=== PATIENT | female | born 1995 | race Caucasian/White ===

== ENCOUNTER 2020-01-23 12:43 | Emergency (ER) | payer OTHER ==
--- NOTE | 2020-01-23 13:23 | ED ---
Complex/Multi-Sys Presentation - HPI Summary HPI Summary: 24 year old F presenting to [facility] with a chief complaint of low potassium since earlier today. The patient rates the pain 0/10 in severity. Symptoms aggravated by nothing. Symptoms alleviated by nothing. Patient reports a history of anorexia. She had blood work done at [facility] today that revealed a low potassium. Patient denies any shortness of breath or diarrhea. She is trying to get into a treatment program for her eating disorder currently. Medication list reviewed. Allergy list reviewed. Home Medications Medication Instructions Recorded Confirmed Type Calcium Carbonate [Calcium] 500 mg PO DAILY 01/23/20 01/23/20 History Multivitamins/Minerals TAB* 1 tab PO DAILY 01/23/20 01/23/20 History [Theragran/minerals TAB*] - History Of Current Complaint Chief Complaint: EDGeneral Time Seen by Provider: 01/23/20 13:17 Hx Obtained From: Patient Onset/Duration: Still Present Timing: Constant Aggravating Factor(s): None Alleviating Factor(s): None Associated Signs And Symptoms: Negative: SOB, Diarrhea - Allergies/Home Medications Allergies/Adverse Reactions: Allergies Allergy/AdvReac Type Severity Reaction Status Date / Time No Known Allergies Allergy Verified 01/23/20 12:50 Home Medications: Home Medications Calcium Carbonate [Calcium] 500 mg PO DAILY 01/23/20 [History Confirmed 01/23/20 ] Multivitamins/Minerals TAB* [Theragran/minerals TAB*] 1 tab PO DAILY 01/23/20 [ History Confirmed 01/23/20] PMH/Surg Hx/FS Hx/Imm Hx EENT History: Denies: Hx Deafness Psychiatric History: Reports: Hx Eating Disorder - Anorexia - Surgical History Surgical History: None Infectious Disease History: No Infectious Disease History: Denies: Traveled Outside the [place] in Last 30 Days - Family History Known Family History: Negative: Hypertension - Social History Alcohol Use: Occasionally Hx Substance Use: No Substance Use Type: Reports: None Smoking Status (MU): Current Every Day Smoker Type: eCigarettes Review of Systems Positive: Other - Low potassium Negative: Shortness Of Breath Negative: Diarrhea All Other Systems Reviewed And Are Negative: Yes Physical Exam - Summary Physical Exam Summary: Constitutional: Well-developed, Well-nourished, Alert. (-) Distressed Skin: Warm, Dry HENT: Normocephalic; Atraumatic Eyes: Conjunctiva normal Neck: Musculoskeletal ROM normal neck. (-) JVD, (-) Stridor, (-) Tracheal deviation Cardio: Rhythm regular, rate normal, Heart sounds normal; Intact distal pulses; Radial pulses are 2+ and symmetric. (-) Murmur Pulmonary/Chest wall: Effort normal. (-) Respiratory distress, (-) Wheezes, (-) Rales Abd: Soft, (-) tenderness, (-) Distension, (-) Guarding, (-) Rebound Musculoskeletal: (-) Edema Lymph: (-) Cervical adenopathy Neuro: Alert, Oriented x3 Psych: Mood and affect Normal Triage Information Reviewed: Yes Vital Signs On Initial Exam: Initial Vitals Temp Pulse Resp BP Pulse Ox 98.3 F 75 16 120/72 100 01/23/20 12:45 01/23/20 12:45 01/23/20 12:45 01/23/20 12:45 01/23/20 12:45 Vital Signs Reviewed: Yes Procedures - Sedation Patient Received Moderate/Deep Sedation with Procedure: No Diagnostics - Vital Signs Vital Signs Temp Pulse Resp BP Pulse Ox 01/23/20 12:45 98.3 F 75 16 120/72 100 - Laboratory Result Diagrams: 01/23/20 13:31 01/23/20 13:31 Lab Statement: Any lab studies that have been ordered have been reviewed, and results considered in the medical decision making process. - EKG 13:25 Cardiac Rate: NL - 59 BPM EKG Rhythm: Sinus Bradycardia Summary of EKG Findings: Normal EKG; no obvious U-Waves present. ED physician has reviewed and interpreted this EKG. Complex Multi-Symp Course/Dx Course Of Treatment: Patient is here with hypokalemia secondary to anorexia. Patient is asymptomatic and has a normal EKG. However, patient does not tolerate by mouth due to her eating disorder so IV potassium was given. Patient eventually agreed to by mouth potassium. Patient is discharged with follow-up at [facility]. - Diagnoses Provider Diagnoses: Hypokalemia Discharge ED - Sign-Out/Discharge Documenting (check all that apply): Patient Departure - Discharge Plan Condition: Stable Disposition: HOME Patient Education Materials: Hypokalemia (ED) Referrals: [facility] [Provider Group] Additional Instructions: Follow-up with [facility] to make sure your potassium comes up to normal levels and to get placement into your treatment center. - Billing Disposition and Condition Condition: STABLE Disposition: Home - Attestation Statements Document Initiated by Sean: Yes Documenting Scribe: Bobbi Victor Provider For Whom Sean is Documenting (Include Credential): Sunny Bajwa MD Scribe Attestation: Bobbi Rapp, scribed for Sunny Bajwa MD on 01/23/20 at 1833. Scribe Documentation Reviewed: Yes Provider Attestation: The documentation as recorded by the Bobbi mayer accurately reflects the service I personally performed and the decisions made by me, Sunny Bajwa MD Status of Scribe Document: Viewed
[2020-01-23 13:51] LABS: ABS Eosinophils 0.1 10^3/ul (0-0.6); ABS Lymphocytes 1.4 10^3/ul (1.0-4.8); ABS Monocytes 0.4 10^3/ul (0-0.8); Eosinophil % 1.1 %; Hematocrit 36 % (35-47); Hemoglobin 12.7 g/dL (12.0-16.0); Lymphocyte % 28.9 %; Mean Corpuscular HGB Conc 35 g/dL (31-36); Mean Corpuscular Hemoglobin 32 pg (27-31); Mean Corpuscular Volume 91 fL (80-97); Mean Platelet Volume 8.3 fL (7.4-10.4); Platelet Count 215 10^3/uL (150-450); Red Blood Count 4.01 10^6 /uL (3.70-4.87); Red Cell Distribution Width 14 % (10-15); White Blood Count 4.9 10^3/uL (3.5-10.8)
[2020-01-23 13:59] LABS: Anion Gap 5 mmol/L (2-11); BUN/Creatinine Ratio 30.3 (8-20); Blood Urea Nitrogen 23 mg/dL (6-24); CO2 Carbon Dioxide 37 mmol/L (22-32); Calcium 9.6 mg/dL (8.6-10.3); Chloride 93 mmol/L (101-111); EGFR African American 112.2 (>60); EGFR Non-African American 92.7 (>60); Glucose 88 mg/dL (70-100); Magnesium 2.3 mg/dL (1.9-2.7); Potassium 2.9 mmol/L (3.5-5.0); Sodium 135 mmol/L (135-145)
[2020-01-23 14:06] LABS: HCG Pregnancy < 0.60 mIU/mL
[2020-01-23] MEDS ORDERED: KCL 20 MEQ/100 ML IVPREMIX* 20 MEQ/100 ML BAG IV ONE (14:17)
[2020-01-23] MEDS ORDERED: NS 0.9% 1000 ML** 1,000 ML IV.FLUID IV ONE (14:51)
[2020-01-23] MEDS ORDERED: Potassium Chlor TAB* 20 MEQ TAB.ER PO ONE (18:28)
[2020-01-23 18:41] VITALS: BP 109/64
== END 2020-01-23 18:40 | disposition home or self-care (01) ==
LOC: ED 12:43
DX: E87.6 Hypokalemia (principal); F17.210 Nicotine dependence, cigarettes, uncomplicated; R63.0 Anorexia
CPT/HCPCS: 36415; 80048; 83735; 84702; 85025; 93005; 96361; 96365; 96366; 99283; A9270-GY; J3480